=== PATIENT | female | born 1985 | race Caucasian/White ===

== ENCOUNTER 2017-04-14 02:00 | Emergency (ER) | payer MEDICAID ==
[2017-04-14 03:17] VITALS: BP 130/86
== END 2017-04-14 03:18 | disposition home or self-care (01) ==
LOC: ED 02:00
DX: J32.9 Chronic sinusitis, unspecified (principal)

== ENCOUNTER 2018-02-06 14:59 | Emergency (ER) | payer MEDICAID ==
[~2018-02-06] VITALS: Ht 165.1 cm; Wt 70.8 kg
[2018-02-06 15:02] VITALS: BP 127/83
== END 2018-02-06 16:34 | disposition home or self-care (01) ==
LOC: ED 14:59
DX: J02.9 Acute pharyngitis, unspecified (principal); M79.10 Myalgia, unspecified site